=== PATIENT | female | born 1965 | race Hispanic/Latino ===

== ENCOUNTER → 2023-03-09 | Outpatient (CLI) | payer OTHER, BC | LOC: M SLEEP HO 11:30 | PROVIDERS: ATTEND Family Medicine | DX: R06.83 Snoring (principal); G47.30 Sleep apnea, unspecified ==

== ENCOUNTER 2023-03-25 09:33 | Day surgery (SDC) | payer OTHER, BC ==
[~2023-03-25] VITALS: Ht 165.1 cm; Wt 90.7 kg
[~2023-03-25 09:33] MED LIST: ESTR1CRE TOP; LEXA1TAB PO; NS 1,000 ML IV ONE; OMEP40CA4 PO
[2023-03-25] MEDS ORDERED: propofoL 200 MG/20 ML VIAL As Ordered ONE ×3 (09:51→12:32)
[2023-03-25] MEDS ORDERED: fentaNYL 100 MCG/2 ML INJECTION As Ordered ONE (09:51)
[2023-03-25 12:41] VITALS: TEMP 98.6
[2023-03-25 12:53] VITALS: BP 101/47; O2SAT 100
== END 2023-03-25 12:53 | disposition home or self-care (01) ==
LOC: M OPP 09:33
PROVIDERS: ATTEND Internal Medicine Gastroenterology
DX: Z12.11 Encounter for screening for malignant neoplasm of colon (principal); Z86.010 Personal history of colon polyps; K63.5 Polyp of colon; K64.4 Residual hemorrhoidal skin tags; K64.8 Other hemorrhoids; K29.70 Gastritis, unspecified, without bleeding; K21.00 Gastro-esophageal reflux disease with esophagitis, without bleeding; Z79.899 Other long term (current) drug therapy; Z91.018 Allergy to other foods
CPT/HCPCS: 43239; 45385; 88305; J3010

== ENCOUNTER → 2023-11-23 | Outpatient (CLI) | payer OTHER, BC ==
[~2023-11-23] MED LIST changes: -NS 1,000 ML IV ONE
== END ==
LOC: M SOG 09:52
PROVIDERS: ATTEND Physician Assistant
DX: M79.641 Pain in right hand (principal)

== ENCOUNTER 2024-01-06 08:20 | Day surgery (SDC) | payer OTHER, BC ==
[~2024-01-06] VITALS: Ht 165.1 cm; Wt 96.2 kg
[~2024-01-06 08:20] MED LIST changes: +AMOX875T PO; +DICY20TA20 PO; +MECL-86 PO
[2024-01-06] MEDS ORDERED: MIDAZOLAM INJ 2MG/2ML VIAL As Ordered ONE (10:43)
[2024-01-06] MEDS ORDERED: ONDANSETRON 4MG 2ML VIAL As Ordered ONE (10:43)
[2024-01-06] MEDS ORDERED: ACETAMINOPHEN 1000MG 100ML IV BAG As Ordered ONE (10:43)
[2024-01-06] MEDS ORDERED: GLYCOPYRROLATE INJ 0.2 MG/ML 2 ML VIAL As Ordered ONE (10:43)
[2024-01-06] MEDS ORDERED: fentaNYL 100 MCG/2 ML INJECTION As Ordered ONE (10:43)
[2024-01-06] MEDS ORDERED: LIDOCAINE 2% 100MG/5ML SDV (FOR ANES.) As Ordered ONE (10:43)
[2024-01-06] MEDS ORDERED: KETAMINE HCL 200MG/20ML VIAL As Ordered ONE (10:43)
[2024-01-06] MEDS ORDERED: propofoL 200 MG/20 ML VIAL As Ordered ONE (10:43)
[2024-01-06 10:55] VITALS: BP 114/68; TEMP 96.6
[2024-01-06 11:17] VITALS: O2SAT 98
[2024-01-06] MEDS: MORPHINE 4 MG/ML 1ML VIAL IV PRN (11:17)
== END 2024-01-06 12:38 | disposition home or self-care (01) ==
LOC: M SDC 08:20
PROVIDERS: ATTEND Orthopaedic Surgery Hand Surgery
DX: G56.01 Carpal tunnel syndrome, right upper limb (principal); G47.30 Sleep apnea, unspecified; K58.9 Irritable bowel syndrome, unspecified; Z79.899 Other long term (current) drug therapy; K21.9 Gastro-esophageal reflux disease without esophagitis
CPT/HCPCS: 29848; J0131; J0665; J2250; J2405; J3010

== ENCOUNTER → 2024-04-13 | Outpatient (REF) | payer OTHER, BC ==
[2024-04-13 11:43] LABS: BASO % 0.6 % (0.0-1.0); EOS # 0.1 10^3/uL (0.0-0.5); EOS % 2.5 % (0.0-3.0); HEMATOCRIT 41.5 % (36.0-47.0); HEMOGLOBIN 13.4 g/dl (12.0-15.5); LYMPH # 2.2 10^3/uL (1.5-5.0); LYMPH % 44.9 % (24.0-44.0); MEAN CORPUSCULAR HEMOGLOBIN 30.7 pg (27.0-33.0); MEAN CORPUSCULAR HGB CONC 32.3 g/dl (32.0-36.5); MEAN CORPUSCULAR VOLUME 95.2 fl (80.0-96.0); MONO # 0.4 10^3/uL (0.0-0.8); MONO % 8.5 % (2.0-8.0); NEUTROPHILS # 2.1 10^3/uL (1.5-8.5); NEUTROPHILS % 43.5 % (36.0-66.0); PLATELET COUNT, AUTOMATED 194 10^3/uL (150-450); RED BLOOD COUNT 4.36 10^6/uL (4.00-5.40); WHITE BLOOD COUNT 4.9 10^3/uL (4.0-10.0)
[2024-04-13 11:44] LABS: ALBUMIN 3.9 G/DL (3.2-5.2); ALKALINE PHOSPHATASE 89 U/L (46-116); ALT/SGPT 66 U/L (7.0-40); AST/SGOT 33 U/L (<34); BILIRUBIN,TOTAL 0.4 MG/DL (0.3-1.2); BLOOD UREA NITROGEN 13 MG/DL (9-23); CARBON DIOXIDE LEVEL 30 MMOL/L (20-31); CHLORIDE LEVEL 108 MMOL/L (98-107); CHOLESTEROL LEVEL 257 MG/DL (<200); CREATININE FOR GFR 0.79 MG/DL (0.55-1.30); GLOMERULAR FILTRATION RATE > 60.0 (>51); GLUCOSE, FASTING 94 MG/DL (60-100); HDL CHOLESTEROL 50.3 MG/DL (>40); LDL CHOLESTEROL 177.5 MG/DL (<100); NON-HDL-C 206.7 MG/DL; POTASSIUM SERUM 4.6 MMOL/L (3.5-5.1); SODIUM LEVEL 142 MMOL/L (136-145); TOTAL PROTEIN 7.4 G/DL (5.7-8.2); TRIGLYCERIDES LEVEL 146 MG/DL (<150)
[2024-04-13 11:54] LABS: FREE T4 0.94 NG/DL (0.89-1.76); THYROID STIMULATING HORMONE 0.516 uIU/ML (0.55-4.78)
[2024-04-13 13:00] LABS: HEMOGLOBIN A1c 5.5 % (4.0-6.0)
== END ==
LOC: M SFHCLERA 08:13
PROVIDERS: ATTEND Family Medicine
DX: R07.89 Other chest pain (principal); E66.9 Obesity, unspecified

== ENCOUNTER → 2024-04-24 | Outpatient (CLI) | payer OTHER, BC | LOC: M EKG 08:08 | PROVIDERS: ATTEND Family Medicine | DX: R07.89 Other chest pain (principal) ==

== ENCOUNTER → 2024-06-01 | Outpatient (REF) | payer OTHER, BC ==
[2024-06-05 15:03] LABS: HPV APTIMA Not Detected (Not Detected)
== END ==
LOC: M SFHCWAGY 10:04
PROVIDERS: ATTEND Nurse Practitioner Family
DX: Z12.4 Encounter for screening for malignant neoplasm of cervix (principal)
CPT/HCPCS: 87624; G0123

== ENCOUNTER → 2024-07-27 | Outpatient (CLI) | payer BC | LOC: M WHC 09:50 | PROVIDERS: ATTEND Nurse Practitioner Family | DX: Z12.31 Encounter for screening mammogram for malignant neoplasm of breast (principal); N83.202 Unspecified ovarian cyst, left side; R10.2 Pelvic and perineal pain ==

== ENCOUNTER → 2024-08-22 | Outpatient (REF) | payer BC, OTHER | LOC: M SFHCLERA 16:29 | PROVIDERS: ATTEND Family Medicine | DX: R05.9 Cough, unspecified (principal) ==

== ENCOUNTER → 2024-08-22 | Outpatient (CLI) | payer BC, OTHER | LOC: M WUC 11:50 | PROVIDERS: ATTEND Family Medicine | DX: J18.9 Pneumonia, unspecified organism (principal) ==

== ENCOUNTER → 2024-11-14 | Outpatient (CLI) | payer BC ==
[2024-11-14 13:19] LABS: BASO % 0.5 % (0.0-1.0); EOS # 0.1 10^3/uL (0.0-0.5); EOS % 1.1 % (0.0-3.0); HEMATOCRIT 41.6 % (36.0-47.0); HEMOGLOBIN 13.4 g/dl (12.0-15.5); LYMPH # 2.3 10^3/uL (1.5-5.0); LYMPH % 37.2 % (24.0-44.0); MEAN CORPUSCULAR HEMOGLOBIN 30.6 pg (27.0-33.0); MEAN CORPUSCULAR HGB CONC 32.2 g/dl (32.0-36.5); MONO # 0.5 10^3/uL (0.0-0.8); MONO % 7.8 % (2.0-8.0); NEUTROPHILS # 3.3 10^3/uL (1.5-8.5); NEUTROPHILS % 53.1 % (36.0-66.0); PLATELET COUNT, AUTOMATED 183 10^3/uL (150-450); RED BLOOD COUNT 4.38 10^6/uL (4.00-5.40); WHITE BLOOD COUNT 6.1 10^3/uL (4.0-10.0)
[2024-11-14 13:26] LABS: FREE T4 0.85 NG/DL (0.89-1.76)
[2024-11-14 13:29] LABS: ALKALINE PHOSPHATASE 95 U/L (35-104); ALT/SGPT 35 U/L (7.0-40); AST/SGOT 24 U/L (<34); BILIRUBIN,TOTAL 0.4 MG/DL (0.3-1.2); BLOOD UREA NITROGEN 10 MG/DL (9-23); CARBON DIOXIDE LEVEL 31 MMOL/L (20-31); CHLORIDE LEVEL 106 MMOL/L (98-107); CHOLESTEROL LEVEL 164 MG/DL (<200); CREATININE FOR GFR 0.67 MG/DL (0.55-1.30); GLOMERULAR FILTRATION RATE > 90.0 (>51); GLUCOSE, FASTING 93 MG/DL (60-100); HDL CHOLESTEROL 56.4 MG/DL (>40); LDL CHOLESTEROL 83.4 MG/DL (<100); NON-HDL-C 107.6 MG/DL; POTASSIUM SERUM 4.7 MMOL/L (3.5-5.1); SODIUM LEVEL 143 MMOL/L (136-145); TOTAL PROTEIN 7.3 G/DL (5.7-8.2); TRIGLYCERIDES LEVEL 121 MG/DL (<150)
[2024-11-14 13:30] LABS: THYROID STIMULATING HORMONE 0.527 uIU/ML (0.55-4.78)
[2024-11-14 13:33] LABS: HEMOGLOBIN A1c 5.1 % (4.0-6.0)
== END ==
LOC: M PLALAB 09:16
PROVIDERS: ATTEND Family Medicine
DX: Z00.00 Encounter for general adult medical examination without abnormal findings (principal)

== ENCOUNTER → 2024-11-21 | Outpatient (CLI) | payer BC | LOC: M RAD 12:34 | PROVIDERS: ATTEND Family Medicine | DX: M25.561 Pain in right knee (principal) ==

== ENCOUNTER 2024-12-21 06:08 | Day surgery (SDC) | payer BC ==
[~2024-12-21] VITALS: Ht 165.1 cm; Wt 89.7 kg
[~2024-12-21 06:08] MED LIST changes: +ATOR40TA75 PO; +DICY20TA3; +ESTR0.1C5; +LEXA1TAB2 PO; +LIDOCAINE W/EPINEPHRINE 1% 20ML VIAL XX ONE; +MELO15TA28 PO; +SODIUM BICARBONATE 8.4% INJ 50MEQ 50ML VIAL XX ONE
[2024-12-21] MEDS: BACITRACIN OINTMENT 30GM TUBE As Ordered ONE (08:04)
[2024-12-21 08:31] VITALS: BP 126/74; TEMP 97.4; O2SAT 97
== END 2024-12-21 08:29 | disposition home or self-care (01) ==
LOC: M SDC 06:08
PROVIDERS: ATTEND Orthopaedic Surgery Hand Surgery
DX: M65.311 Trigger thumb, right thumb (principal); K58.9 Irritable bowel syndrome, unspecified; E78.00 Pure hypercholesterolemia, unspecified; K21.9 Gastro-esophageal reflux disease without esophagitis; G47.30 Sleep apnea, unspecified; Z79.899 Other long term (current) drug therapy; F41.9 Anxiety disorder, unspecified; F32.A Depression, unspecified; Z91.018 Allergy to other foods

== ENCOUNTER → 2025-02-13 | Outpatient (CLI) | payer BC ==
[~2025-02-13] MED LIST changes: +FAMO20TA PO; -LIDOCAINE W/EPINEPHRINE 1% 20ML VIAL XX ONE; -SODIUM BICARBONATE 8.4% INJ 50MEQ 50ML VIAL XX ONE
== END ==
LOC: M RAD 14:10
PROVIDERS: ATTEND Radiology Diagnostic Radiology
DX: I87.8 Other specified disorders of veins (principal)

== ENCOUNTER → 2025-02-20 | Outpatient (POV) | payer BC ==
[~2025-02-20] VITALS: Ht 165.1 cm; Wt 40.7 kg
[2025-02-20 09:10] VITALS: BP 128/82; O2SAT 96
== END ==
LOC: M IRPOV 09:02
PROVIDERS: ATTEND Registered Nurse School
DX: I83.893 Varicose veins of bilateral lower extremities with other complications (principal); Z79.899 Other long term (current) drug therapy; Z82.49 Family history of ischemic heart disease and other diseases of the circulatory system; Z91.018 Allergy to other foods

== ENCOUNTER → 2025-04-12 | Outpatient (CLI) | payer BC ==
[~2025-04-12] MED LIST changes: +IBUPROFEN 600 MG TAB PO PRN; +NS (Normal Saline) 0.9% 1,000 ML IV SCH; +SODIUM CHLORIDE 0.9% 1000 ML XX SCH
[2025-04-12 08:55] VITALS: TEMP 96.5
[2025-04-12] MEDS: LIDOCAINE 1% MDV 20 ML VIAL SC SCH (08:55)
[2025-04-12] MEDS: MIDAZOLAM INJ 2 MG/2 ML VIAL IV PRN (09:23)
[2025-04-12] MEDS: SODIUM TETRADECYL SULFATE (1%) 20MG/2ML VIAL (SOTRADECOL) IV SCH (10:35)
[2025-04-12 11:20] VITALS: BP 108/54; O2SAT 95
== END ==
LOC: M IRPRO 08:44
PROVIDERS: ATTEND Registered Nurse School
DX: I87.2 Venous insufficiency (chronic) (peripheral) (principal)
CPT/HCPCS: 36470; 76942; 99152; 99153; J2250; J3010

== ENCOUNTER → 2025-04-16 | Outpatient (CLI) | payer BC ==
[~2025-04-16] MED LIST changes: -IBUPROFEN 600 MG TAB PO PRN; -NS (Normal Saline) 0.9% 1,000 ML IV SCH; -SODIUM CHLORIDE 0.9% 1000 ML XX SCH
== END ==
LOC: M RAD 13:15
PROVIDERS: ATTEND Registered Nurse School
DX: I87.8 Other specified disorders of veins (principal)

== ENCOUNTER → 2025-06-03 | Outpatient (REF) | payer BC, OTHER ==
[~2025-06-03] MED LIST changes: +PHEN37.511 PO
[2025-06-05 15:47] LABS: HPV APTIMA Not Detected (Not Detected)
== END ==
LOC: M SFHCWAGY 10:44
PROVIDERS: ATTEND Specialist
DX: Z01.419 Encounter for gynecological examination (general) (routine) without abnormal findings (principal); Z12.31 Encounter for screening mammogram for malignant neoplasm of breast; Z79.899 Other long term (current) drug therapy; Z91.018 Allergy to other foods; Z80.0 Family history of malignant neoplasm of digestive organs; Z80.42 Family history of malignant neoplasm of prostate; Z80.49 Family history of malignant neoplasm of other genital organs
CPT/HCPCS: 87624; G0123

== ENCOUNTER → 2025-06-10 | Outpatient (CLI) | payer BC ==
[~2025-06-10] MED LIST changes: +D5W 1000 ML XX SCH; +IBUPROFEN 600 MG TAB PO PRN
[2025-06-10 06:59] VITALS: TEMP 97.4
[2025-06-10] MEDS: NS (Normal Saline) 0.9% 1,000 ML IV SCH (07:10)
[2025-06-10] MEDS: LIDOCAINE 1% MDV 20 ML VIAL SC SCH (09:15)
[2025-06-10] MEDS: MIDAZOLAM INJ 2 MG/2 ML VIAL IV PRN (09:15)
[2025-06-10] MEDS: SODIUM TETRADECYL SULFATE (1%) 20MG/2ML VIAL (SOTRADECOL) IV SCH (09:17)
[2025-06-10 09:50] VITALS: BP 126/74; O2SAT 98
== END ==
LOC: M IRPRO 06:57
PROVIDERS: ATTEND Registered Nurse School
DX: I87.2 Venous insufficiency (chronic) (peripheral) (principal); I78.1 Nevus, non-neoplastic
CPT/HCPCS: 36470; 36482; 99152; 99153; C1769; J2250; J3010

== ENCOUNTER → 2025-07-10 | Outpatient (CLI) | payer BC ==
[~2025-07-10] MED LIST changes: -D5W 1000 ML XX SCH; -IBUPROFEN 600 MG TAB PO PRN
== END ==
LOC: M RAD 10:27
PROVIDERS: ATTEND Radiology Diagnostic Radiology
DX: I87.2 Venous insufficiency (chronic) (peripheral) (principal)

== ENCOUNTER → 2025-07-10 | Outpatient (POV) | payer BC, OTHER | LOC: M IRPOV 11:30 | PROVIDERS: ATTEND Radiology Diagnostic Radiology | DX: I80.01 Phlebitis and thrombophlebitis of superficial vessels of right lower extremity (principal); I87.2 Venous insufficiency (chronic) (peripheral); I78.1 Nevus, non-neoplastic; I83.018 Varicose veins of right lower extremity with ulcer other part of lower leg; Z80.0 Family history of malignant neoplasm of digestive organs; Z80.49 Family history of malignant neoplasm of other genital organs; Z82.61 Family history of arthritis; Z81.8 Family history of other mental and behavioral disorders; Z82.49 Family history of ischemic heart disease and other diseases of the circulatory system; Z79.899 Other long term (current) drug therapy; Z91.018 Allergy to other foods | CPT/HCPCS: 93971; G0463 ==

== ENCOUNTER → 2025-07-30 | Outpatient (CLI) | payer BC, OTHER | LOC: M WHC 08:38 | PROVIDERS: ATTEND Specialist | DX: Z12.31 Encounter for screening mammogram for malignant neoplasm of breast (principal); R92.313 Mammographic fatty tissue density, bilateral breasts ==